=== PATIENT | male | born 1985 | race Caucasian/White ===

== ENCOUNTER 2022-12-22 03:42 | Emergency (ER) | payer MEDICARE, MEDICAID ==
[~2022-12-22] VITALS: Ht 175.3 cm; Wt 54.5 kg
[2022-12-22] MEDS ORDERED: proCHLORperazine 10 MG/2 ml inj IV ONE (03:45)
[2022-12-22] MEDS ORDERED: metoclopramide 5 mg/ml inj IV ONE (03:45)
[2022-12-22] MEDS ORDERED: diphenhydrAMINE 50 mg/ml inj IV ONE (03:45)
[2022-12-22] MEDS ORDERED: normal saline 1000ml 1,000 ML IV ONE (03:45)
[2022-12-22] MEDS ORDERED: pantoprazole 40mg IV 80 MG in normal saline 100ml IV soln 100 ML IV ONE (03:55)
[2022-12-22] MEDS ORDERED: pantoprazole 40MG/NS 100ML BAG 100 ML IV ONE ×2 (04:05→04:20)
[2022-12-22 04:13] LABS: BASOPHILS # (AUTO) 0.1 X10'3 (0-0.2); BASOPHILS % (AUTO) 0.4 % (0-1); EOSINOPHILS # (AUTO) 0.1 X10'3 (0-0.9); EOSINOPHILS % (AUTO) 0.7 % (0-6); HEMATOCRIT 44.3 % (42.0-52.0); HEMOGLOBIN 14.8 g/dl (14.0-17.9); LYMPHOCYTES # (AUTO) 2.1 X10'3 (1.1-4.8); LYMPHOCYTES % (AUTO) 10.7 % (21-51); MEAN CORPUSCULAR HEMOGLOBIN 32.6 PG (27.0-31.0); MEAN CORPUSCULAR HGB CONC 33.5 g/dL (33.0-36.5); MEAN CORPUSCULAR VOLUME 97.4 FL (78-98); MEAN PLATELET VOLUME 9.5 FL (7.4-10.4); MONOCYTES # (AUTO) 1.2 X10'3 (0-0.9); MONOCYTES % (AUTO) 5.9 % (2-12); NEUTROPHILS # (AUTO) 16.2 X10'3 (1.8-7.7); NEUTROPHILS % (AUTO) 82.3 % (42-75); PLATELET COUNT 300 X10'3 (140-440); RED BLOOD COUNT 4.55 X10'6 (4.70-6.10); RED CELL DISTRIBUTION WIDTH 13.5 % (11.5-14.5); WHITE BLOOD COUNT 19.7 X10'3 (4.5-11.0)
[2022-12-22 04:20] LABS: ALANINE AMINOTRANSFERASE 13 U/L (12-78); ALBUMIN 3.7 G/DL (3.4-5.0); ALBUMIN/GLOBULIN RATIO 1.2 (1.1-1.5); ALKALINE PHOSPHATASE 55 IU/L (46-116); ANION GAP 8 (8-16); ASPARTATE AMINO TRANSFERASE 14 U/L (10-37); BILIRUBIN,TOTAL 0.3 MG/DL (0.1-1.0); BLOOD UREA NITROGEN 11 MG/DL (7-18); BUN/CREATININE RATIO 9.8 (10.0-20.0); CALCIUM 9.4 MG/DL (8.5-10.1); CHLORIDE 101 MMOL/L (99-107); CREATININE 1.12 MG/DL (0.60-1.10); GLUCOSE 132 MG/DL (70-104); LIPASE 38 U/L (16-77); POTASSIUM 4.2 MMOL/L (3.5-5.1); SODIUM 137 MMOL/L (135-145); TOTAL CARBON DIOXIDE 28.3 MMOL/L (24-32); TOTAL PROTEIN 6.8 G/DL (6.4-8.2); eCRCL 68 ML/MIN; eGFR 73 ML/MIN
[2022-12-22] MEDS ORDERED: famotidine/PF 10 mg/ml inj IV ONE (04:35)
[2022-12-22] MEDS ORDERED: haloperidol lactate 5mg/ml inj IM ONE (04:50)
[2022-12-22] MEDS ORDERED: PROC-8 PO (05:55)
[2022-12-22] MEDS ORDERED: ONDA8TAB13 PO (05:55)
[2022-12-22] MEDS ORDERED: ESCI5TAB17 (07:06)
--- NOTE | 2022-12-22 07:07 | NUR ---
pt state 7 out of 10 pain
[2022-12-22] MEDS ORDERED: normal saline 1000ML IV soln IVB ONE ×2 (07:35→09:05)
[2022-12-22] MEDS ORDERED: LIDOcaine Viscous 15ml cup TP ONE (07:35)
[2022-12-22] MEDS ORDERED: ketorolac trometh. 30mg/ml inj. IV ONE (09:00)
[2022-12-22 09:50] LABS: BILIRUBIN,URINE NEGATIVE (Neg); CLARITY,URINE CLEAR (Clear); COLOR,URINE YELLOW (Yellow); GLUCOSE, URINE NEGATIVE (Neg); KETONES,URINE NEGATIVE (Neg); LEUKOCYTE ESTERASE ,URINE NEGATIVE (Neg); NITRITES, URINE NEGATIVE (Neg); OCCULT BLOOD,URINE NEGATIVE (Neg); PH,URINE 7.5 (4.8-8.0); PROTEIN,URINE NEGATIVE (Neg); UROBILINOGEN,URINE 0.2 E.U/dL (0.2-1.0)
[2022-12-22 09:57] LABS: URINE AMPHETAMINE SCREEN NEGATIVE (Neg); URINE BARBITUATE SCREEN NEGATIVE (Neg); URINE BENZODIAZEPINES SCREEN NEGATIVE (Neg); URINE CANNABINOID SCREEN POSITIVE (Neg); URINE COCAINE SCREEN NEGATIVE (Neg); URINE METHADONE SCREEN NEGATIVE (Neg); URINE OPIATE SCREEN NEGATIVE (Neg); URINE PHENCYCLIDINE SCREEN NEGATIVE (Neg)
[2022-12-22 10:02] LABS: UA COLLECTION TYPE NON-SPECIFIED
[2022-12-22 10:17] VITALS: BP 106/78; PULSE 54; O2SAT 96
[2022-12-22 10:53] VITALS: RESP 18; TEMP 98
== END 2022-12-22 10:56 | disposition home or self-care (01) ==
LOC: ER 03:43
DX: R11.2 Nausea with vomiting, unspecified (principal); R10.13 Epigastric pain; Z79.899 Other long term (current) drug therapy
CPT/HCPCS: 36415; 80053; 80305; 80320; 81003; 83690; 84145; 85025; 96361; 96365; 96366; 96372; 96375; 99285; C9113; J0780; J1200; J1630; J1885; J2765; J3490; J7030